=== PATIENT | female | born 1930 | race Caucasian/White ===

== ENCOUNTER 2016-06-22 07:13 | Outpatient (CLI) | payer MEDICARE, OTHER ==
[2016-06-22] MEDS: IOPAMIDOL-300 100 ML VIAL IVP ONE (08:44)
== END 2016-06-22 07:14 | disposition home or self-care (01) ==
DX: G44.51 Hemicrania continua (principal); G44.52 New daily persistent headache (NDPH)
CPT/HCPCS: 36415; 70496; 82565; Q9967